=== PATIENT | female | born 1970 | race American Indian/Alaskan Native ===

== ENCOUNTER 2018-08-31 06:20 | Emergency (ER) | payer OTHER ==
[2018-08-31] MEDS ORDERED: NACL 0.9% 1000 ML 1,000 ML IV ONE (06:46)
--- NOTE | 2018-08-31 06:48 | Emergency Department Report ---
ED Abdominal Pain HPI - General Chief Complaint: Abdominal Pain Stated Complaint: STOMACH CRAMPS DIARRHEA Time Seen by Provider: 08/31/18 06:41 Source: patient Mode of arrival: Ambulatory Limitations: No Limitations - History of Present Illness Initial Comments: Patient is a 48-year-old female presents to emergency room with mild abdominal pain. Patient states her abdominal pain started last night. Patient states she also had associated diarrhea. Patient denies nausea vomiting. Patient states she believes she ate something is irritating her stomach. Patient denies any blood in her stool. Patient denies fever or chills. Patient states her ab dominal pain is a 3 out of 10. Patient states the pain is worse with palpation and movement. Patient states the pain is better with rest. MD Complaint: abdominal pain -: Sudden Location: LLQ, RLQ Radiation: none Migration to: no migration Severity: mild Severity scale (0 -10): 3 Quality: cramping Consistency: colicky Improves With: rest Worsens With: movement Associated Symptoms: diarrhea. denies: nausea, vomiting, fever, chills, constipation, dysuria, hematemesis, hematochezia, melena, hematuria, anorexia, syncope - Related Data Home Medications Medication Instructions Recorded Confirmed Last Taken Lisinopril/Hydrochlorothiazide 20 - 25 mg PO DAILY 08/31/18 08/31/18 Unknown [Zestoretic 20-25 mg] Previous Rx's Medication Instructions Recorded Last Taken Type metroNIDAZOLE [Flagyl] 500 mg PO Q12HR 10 Days #20 tab 08/31/18 Unknown Rx Allergies Allergy/AdvReac Type Severity Reaction Status Date / Time adhesive tape Allergy Rash Verified 08/31/18 06:28 cat dander Allergy Unknown Verified 08/31/18 06:28 dog dander Allergy Unknown Verified 08/31/18 06:28 Iodinated Contrast- Oral and Allergy Hives Verified 08/31/18 06:28 IV Dye peach Allergy Unknown Verified 08/31/18 06:28 peanut Allergy Unknown Verified 08/31/18 06:28 pineapple Allergy Unknown Verified 08/31/18 06:28 shellfish derived Allergy Unknown Verified 08/31/18 06:28 strawberry Allergy Unknown Verified 08/31/18 06:28 ED Review of Systems ROS: Stated complaint: STOMACH CRAMPS DIARRHEA Other details as noted in HPI Constitutional: denies: chills, fever Eyes: denies: eye pain, eye discharge, vision change ENT: denies: ear pain, throat pain Respiratory: denies: cough, shortness of breath, wheezing Cardiovascular: denies: chest pain, palpitations Endocrine: no symptoms reported Gastrointestinal: abdominal pain, diarrhea. denies: nausea, vomiting, constipat ion, hematemesis, melena, hematochezia Genitourinary: denies: as per HPI, urgency, dysuria, discharge Musculoskeletal: denies: back pain, joint swelling, arthralgia Skin: denies: rash, lesions Neurological: denies: headache, weakness, paresthesias Psychiatric: denies: anxiety, depression Hematological/Lymphatic: denies: easy bleeding, easy bruising ED Past Medical Hx - Past Medical History Previous Medical History?: Yes Hx Hypertension: Yes Additional medical history: high chol - Surgical History Past Surgical History?: Yes Additional Surgical History: hyster - Family History Family history: no significant - Social History Smoking Status: Never Smoker Substance Use Type: None - Medications Home Medications: Home Medications Medication Instructions Recorded Confirmed Last Taken Type Lisinopril/Hydrochlorothiazide 20 - 25 mg PO DAILY 08/31/18 08/31/18 Unknown History [Zestoretic 20-25 mg] metroNIDAZOLE [Flagyl] 500 mg PO Q12HR 10 Days #20 tab 08/31/18 Unknown Rx ED Physical Exam - General Limitations: No Limitations General appearance: alert, in no apparent distress - Head Head exam: Present: atraumatic, normocephalic - Eye Eye exam: Present: normal appearance - ENT ENT exam: Present: mucous membranes moist - Neck Neck exam: Present: normal inspection - Respiratory Respiratory exam: Present: normal lung sounds bilaterally. Absent: respiratory distress - Cardiovascular Cardiovascular Exam: Present: regular rate, normal rhythm. Absent: systolic murmur, diastolic murmur, rubs, gallop - GI/Abdominal GI/Abdominal exam: Present: soft, tenderness (bilateral lower quadrant tenderness to palpation), normal bowel sounds. Absent: distended, guarding - Extremities Exam Extremities exam: Present: normal inspection - Back Exam Back exam: Present: normal inspection - Neurological Exam Neurological exam: Present: alert, oriented X3 - Psychiatric Psychiatric exam: Present: normal affect, normal mood - Skin Skin exam: Present: warm, dry, intact, normal color. Absent: rash ED Course Vital Signs 06/08/31/18 08/31/18 06:22 07:02 07:59 Temperature 97.5 F L Pulse Rate 97 H 82 Respiratory 18 16 16 Rate Blood Pressure 92/61 Blood Pressure 94/58 [Right] O2 Sat by Pulse 98 98 98 Oximetry 08/31/18 08:01 Temperature 98.6 F Pulse Rate Respiratory Rate Blood Pressure Blood Pressure [Right] O2 Sat by Pulse Oximetry - Reevaluation(s) Reevaluation #1: Discussed all results with patient. Patient is stable for discharge. Patient will be discharged home.. Patient agrees to plan of care.. Patient given discharge instructions. Patient voiced understanding of discharge instructions. His blood pressure was a little low on arrival. However her blood pressure has improved nicely. Patient's current blood pressure is 112/68. Patient denies pain. Patient denies any symptoms right now. 08/31/18 10:21 ED Medical Decision Making - Lab Data Result diagrams: 08/31/18 06:44 08/31/18 06:44 - Radiology Data Radiology results: report reviewed CT scan of abdomen and pelvis without IV contrast: History: Abdominal pain Findings: Normal lung bases. No pleural pericardial effusion. Normal liver spleen pancreas and gallbladder. Normal kidney parenchyma and bladder. Decompressed bladder. No evidence of appendicitis or diverticulitis. Few loops of small bowel are not clearly identified and cannot be differentiated from fluid-filled bowel and loculated fluid collection. This is seen to the right of the midline in the pelvis. Impression: Findings as detailed above. Sonogram of the pelvis or CT scan of abdomen and pelvis with IV and oral contrast recommended for further evaluation. - Medical Decision Making Patient is a patient is a 48-year-old female Emergency room with complaints of abdominal pain and diarrhea. Gastroenteritis. Patient will be given antibiotics due to her elevated white blood cell count. Patient will be placed on Cipro. Patient's CT shows gastroenteritis. Patient blood pressure mildly low upon arrival and responded well while in the ER. Patient denies pain just prior to discharge. Patient given discharge instructions. Patient is stable for discharge. Patient will be discharged home. - Differential Diagnosis gastroenteritis. Abdominal pain. Diarrhea. Critical care attestation.: If time is entered above; I have spent that time in minutes in the direct care of this critically ill patient, excluding procedure time. ED Disposition Clinical Impression: Gastroenteritis Abdominal pain Qualifiers: Abdominal location: lower abdomen, unspecified Qualified Code(s): R10.30 - Lower abdominal pain, unspecified Diarrhea Qualifiers: Diarrhea type: unspecified type Qualified Code(s): R19.7 - Diarrhea, unspecified Disposition: TO HOME OR SELFCARE Is pt being admited?: No Does the pt Need Aspirin: No Condition: Stable Instructions: Abdominal Pain (ED) Additional Instructions: Patient to follow-up with primary care in 2-3 days. Patient to take Tylenol or ibuprofen when necessary for pain. Patient to [place] diet. Patient to take a probiotic. Patient to return to ER if condition worsens. Patient to take meds as directed. Patient to increase water. Patient to rest. Patient to monitor blood pressure at home. .. Prescriptions: metroNIDAZOLE [Flagyl] 500 mg PO Q12HR 10 Days #20 tab Referrals: BOY ZAPATA MD [Primary Care Provider] - 2-3 Days Time of Disposition: 10:32
[2018-08-31 06:58] LABS: Basophils % (Auto) 0.3 % (0.0-1.8); Eosinophils % (Auto) 0.4 % (0.0-4.3); Hematocrit 50.7 % (30.3-42.9); Hemoglobin 17.2 gm/dl (10.1-14.3); Lymphocytes # (Auto) 1.5 K/mm3 (1.2-5.4); Lymphocytes % (Auto) 11.9 % (13.4-35.0); Mean Corpuscular HGB Conc 34 % (30-34); Mean Corpuscular Volume 94 fl (79-97); Monocytes # (Auto) 0.3 K/mm3 (0.0-0.8); Monocytes % (Auto) 2.6 % (0.0-7.3); Platelet Count 281 K/mm3 (140-440)
[2018-08-31 07:12] LABS: Albumin 4.6 g/dL (3.9-5); Calcium 9.4 mg/dL (8.4-10.2)
[2018-08-31 08:02] VITALS: BP 94/58
[2018-08-31 09:24] LABS: Bacteria,Urine 1+ /HPF (Negative); Bilirubin,Urine NEG (Negative); Blood,Urine NEG (Negative); Color,Urine Yellow (Yellow); Mucus,Urine 1+ /HPF; Protein,Urine <15 mg/dL mg/dL (Negative); Urobilinogen,Urine < 2.0 mg/dL (<2.0)
--- NOTE | 2018-08-31 09:35 | Cat Scan Report ---
CT scan of abdomen and pelvis without IV contrast: History: Abdominal pain Findings: Normal lung bases. No pleural pericardial effusion. Normal liver spleen pancreas and gallbladder. Normal kidney parenchyma and bladder. Decompressed bladder. No evidence of appendicitis or diverticulitis. Few loops of small bowel are not clearly identified and cannot be differentiated from fluid-filled bowel and loculated fluid collection. This is seen to the right of the midline in the pelvis. Impression: Findings as detailed above. Sonogram of the pelvis or CT scan of abdomen and pelvis with IV and oral contrast recommended for further evaluation.
== END 2018-08-31 10:42 | disposition home or self-care (01) ==
LOC: ED 06:20
DX: K52.9 Noninfective gastroenteritis and colitis, unspecified (principal); R10.31 Right lower quadrant pain; R10.32 Left lower quadrant pain; R19.7 Diarrhea, unspecified; I10 Essential (primary) hypertension; E78.00 Pure hypercholesterolemia, unspecified; Z90.710 Acquired absence of both cervix and uterus; Z91.018 Allergy to other foods; Z91.041 Radiographic dye allergy status; Z91.09 Other allergy status, other than to drugs and biological substances
CPT/HCPCS: 36415; 74176; 80053; 81001; 85025; 96360; 99284; J7030